=== PATIENT | male | born 1970 | race Caucasian/White ===

== ENCOUNTER 2016-09-23 19:52 | Emergency (ER) | payer BC ==
--- NOTE | 2016-09-23 20:18 | EDPHY ---
H & P Time Seen by Provider: 09/23/16 19:59 HPI/ROS: HPI Left thumb laceration. 46-year-old male by private vehicle. He is right-hand dominant. He was doing wood work with a sharp chisel. He accidentally cut himself with the chisel left radial aspect distal thumb. No other complaint or injury. Cannot remember when his last tetanus shot was. ROS: Constitutional: No fever, no chills. No weakness. Skin: No rashes. As above Neurological: No focal weakness or altered sensation. Past medical history: No pertinent past medical history. Social history: Here by himself. Nonsmoker. Physical Exam: General Appearance: Alert, no distress. This patient is responding to questions appropriately and in full sentences. This patient appears well- hydrated and well-nourished. Eyes: Pupils equal and round no pallor or injection. No lid edema, erythema or injection. Left thumb exam: Significant for a linear, non gaping laceration with fairly brisk bleeding, 2.5 cm in length, distal radial aspect of the thumb just adjacent to the paronychial fold. The left thumb is neurovascularly intact. Flexor and extensor function is intact. No articular involvement. I do not suspect tendon involvement. The left thumb is neurovascularly intact. Neurological: Motor sensory function is grossly intact. Cranial nerves are normal. Gait is normal. Skin: Warm and dry, no rashes. Extremities are symmetrical. All joints range without pain or impingement. Psychiatric: No agitation. No depression. Database: EKG: Imaging: Procedures: Procedure: Laceration repair. Verbal consent was obtained from the patient. The 2.5 laceration on the left distal thumb was anesthetized with digital block, bupivacaine 0.5% without epinephrine. The wound was irrigated, draped and explored to its base with a gloved finger. There were no deep structures involved. No tendon injury was identified. No foreign body identified. The wound was repaired with 6, 5.0 Prolene sutures placed in interrupted fashion. The wound repair was tolerated well and there were no complications. The procedure was performed by myself. Emergency department course: Patient received Tdap vaccination. After suture repair, wound care was discussed with the patient. Appropriate dressing was applied to the wound area. Suture removal was reviewed. Infection precautions discussed. Return to emergency department follow-up reviewed. All of his questions were answered. He was discharged in good condition. Differential Diagnosis: The differential diagnosis on this patient includes but is not limited to left thumb laceration. Tendon laceration, retained foreign body, articular involvement, significant neurovascular injury unlikely. This represents a partial list of diagnoses considered. These considerations are based on history , physical exam, past history, reassessment and diagnostic testing. Smoking Status: Never smoked Constitutional: Initial Vital Signs Temperature (C) 36.8 C 09/23/16 20:04 Heart Rate 62 09/23/16 20:04 Respiratory Rate 18 09/23/16 20:04 Blood Pressure 126/86 H 09/23/16 20:04 O2 Sat (%) 94 09/23/16 20:04 O2 Delivery Mode Room Air Allergies/Adverse Reactions: No Known Allergies Allergy (Unverified 09/05/13 22:45) Home Medications: Medication Instructions Recorded Aspirin [Aspirin 81mg (*)] 09/05/13 Lexapro 09/23/16 Medical Decision Making - Data Points Medications Given: Discontinued Medications Diphtheria/Tetanus/Acell Pertussis (Boostrix) 0.5 ml IM .ONCE ONE Stop: 09/23/16 20:25 Last Admin: 09/23/16 20:31 Dose: 0.5 ml Tetanus Immune Globulin (Hypertet S-D) 250 unit IM .ONCE ONE Stop: 09/23/16 20:22 Last Admin: 09/23/16 20:25 Dose: Not Given Departure - Departure Disposition: Home, Routine, Self-Care Clinical Impression: Laceration of left thumb Condition: Good Instructions: Finger Laceration (ED) Additional Instructions: Read and follow provided instructions. Follow-up with your primary care physician in 1-2 days for re-evaluation as needed. Sutures are to be removed in 8-10 days. Ibuprofen dosin mg every 6 hours with meals for the next 3 days only. Take only as needed for pain. Return to the emergency department for bleeding, swelling, discoloration, signs of infection as noted in discharge instructions or other serious concerns. Referrals: Narinder Choi MD [Primary Care Provider] - As per Instructions
[2016-09-23] MEDS ORDERED: TETANUS IMMUNE GLOBULIN/PF 250 UNIT SYR IM ONE (20:21)
[2016-09-23] MEDS ORDERED: TDAP ADULT 0.5 ML INJ (BOOSTRIX) IM ONE (20:24)
[2016-09-23 20:48] VITALS: BP 126/63; PULSE 65; RESP 20; TEMP 98.1; O2SAT 95
== END 2016-09-23 20:58 | disposition home or self-care (01) ==
LOC: CED 19:52
PROC: 0HQGXZZ Repair Left Hand Skin, External Approach (ICD-10-PCS; principal; 2016-09-23)
DX: S61.012A Laceration without foreign body of left thumb without damage to nail, initial encounter (principal); Z23 Encounter for immunization; W27.0XXA Contact with workbench tool, initial encounter
CPT/HCPCS: J1670

== ENCOUNTER → 2017-02-07 | Day surgery (SDC) | payer BC ==
[~2017-02-07] MED LIST: ACETAMINOPHEN 500 MG TAB PO PRN; BUPIVACAINE 0.5% 30 ML SDV ONE; DEXAMETHASONE 4 MG/ML VIAL ONE; GLYCOPYRROLATE 0.2 MG/1 ML VIAL ONE; HYDROCODONE/APAP 5/325 TAB PO PRN; KETOROLAC 30 MG/1 ML SDV ONE; LIDOCAINE 1% 2 ML INJ ID PRN; LIDOCAINE 1% 2 ML INJ ONE; LIDOCAINE 2% 5 ML SDV ONE; LR 1,000 ML IV ONE; LR 500 ML IV PRN; MIDAZOLAM 2 MG/2 ML VIAL IVP ONE; NALOXONE HCL 0.4 MG/ML INJ IVP PRN; NEOSTIGMINE METHYLSULFATE 3 MG/3 ML SYR ONE; ONDANSETRON 4 MG/2 ML VIAL IVP PRN; ONDANSETRON 4 MG/2 ML VIAL ONE; OXYCODONE/APAP 5/325 TAB ONE; OXYCODONE/APAP 5/325 TAB PO PRN; PROMETHAZINE HCL 25 MG/ML INJ IVP PRN; PROPOFOL 200 MG/20 ML VIAL ONE; PROPOFOL/EMULSION 500 MG/50 ML BOTTLE IV ONE; REMIFENTANIL HCL 1 MG VIAL ONE; ROCURONIUM 50 MG/5 ML VIAL ONE; ceFAZolin 2 GM/SWFI 2 GM/20 ML SYR IVP ONE; fentaNYL 100 MCG/2 ML INJ ONE
--- NOTE | 2017-02-07 06:27 | PDHPUP ---
History & Physical Update H&P update statement: This history and physical update is based on an assessment of the patient which was completed after admission or registration (within 24 hours), but prior to the surgery/procedure. H&P update: H&P reviewed & patient examined, no change in patient's condition since H&P completed
--- NOTE | 2017-02-07 06:55 | PDANEPAE ---
ANE Past Medical History - Cardiovascular History Hx Hypertension: No Hx Arrhythmias: No Hx Chest Pain: No Hx Coronary Artery / Peripheral Vascular Disease: No Hx CHF / Valvular Disease: No Hx Palpitations: No - Pulmonary History Hx COPD: No Hx Asthma/Reactive Airway Disease: No Hx Recent Upper Respiratory Infection: No Hx Oxygen in Use at Home: No Hx Sleep Apnea: No Sleep Apnea Screening Result - Last Documented: Negative - Neurologic History Hx Cerebrovascular Accident: No Hx Seizures: No Hx Dementia: No Neurologic History Comment: MIGRAINES OCCAS - Endocrine History Hx Diabetes: No Hypothyroid: No Hyperthyroid: No Obesity: no - Renal History Hx Renal Disorders: No - Liver History Hx Hepatic Disorders: No - Neurological & Psychiatric Hx Hx Neurological and Psychiatric Disorders: No Neurological / Psychiatric History Comment: LEXAPRO - Cancer History Hx Cancer: No Cancer History Comment: PRECANCEROUS NASAL LESION - Congenital Disorder History Hx Congenital Disorders: Yes Congenital History Comment: MTHFR DISORDER. MOTHER HAS SEVERAL BLOOD DISORDERS - GI History GERD: no Hx Gastrointestinal Disorders: No - Other Health History Other Health History: RASH RECURRENT - Chronic Pain History Chronic Pain: Yes (BACK, KNEES & SHOULDER) - Surgical History Prior Surgeries: EYE SURG X2. SINUS SURG. R KNEE ACL. WISDOM TEETH ANE Review of Systems Review of Systems: - Exercise capacity METS (RN): 5 METS ANE Patient History - Allergies Allergies/Adverse Reactions: No Known Allergies Allergy (Verified 09/23/16 20:57) - Home Medications Home Medications: Aspirin [Aspirin 81mg (*)] 09/05/13 [Last Taken 02/02/17] Lexapro 09/23/16 [Last Taken 02/07/17] Silodosin 02/03/17 [Last Taken 02/07/17] - NPO status NPO Since - Liquids (Date): 02/06/17 NPO Since - Liquids (Time): 22:00 NPO Since - Solids (Date): 02/06/17 NPO Since - Solids (Time): 20:00 - Anes Hx Anes Hx: post operative nausea (Only nausea after ocular surgeries) - Smoking Hx Smoking Status: Never smoked - Family Anes Hx Family Anes Hx: neg - N/A Family Hx Anesthesia Complications: NEG ANE Labs/Vital Signs - Vital Signs Blood Pressure: 117/89 Heart Rate: 96 Respiratory Rate: 16 O2 Sat (%): 96 Height: 182.88 cm Weight: 74.843 kg ANE Physical Exam - Airway Neck exam: FROM Mallampati Score: Class 1 Mouth exam: normal dental/mouth exam - Pulmonary Pulmonary: no respiratory distress, no rales or rhonchi, clear to auscultation - Cardiovascular Cardiovascular: regular rate and rhythym, no murmur, rub, or gallop - ASA Status ASA Status: I ANE Anesthesia Plan Anesthesia Plan: general endotracheal anesthesia
[2017-02-07] MEDS: fentaNYL 100 MCG/2 ML INJ IVP PRN ×2 (09:48→10:04)
[2017-02-07 09:54] VITALS: PULSE 59
--- NOTE | 2017-02-07 10:06 | POSTANESTH ---
Post Anesthetic Evaluation Cardiovascular Status: Normal, Stable Respiratory Status: Normal, Stable Level of Consciousness/Mental Status: Can Participate in Eval Pain Control: Adequate, Prn Tx Ordered Nausea/Vomiting Control: Adequate, Prn Tx Ordered Complications Possibly Related to Anesthesia: None Noted
[2017-02-07 10:16] VITALS: RESP 14
--- NOTE | 2017-02-07 10:40 | POSTOPPROG ---
Post Op Note Date of Operation: 02/07/17 Surgeon: Thomas Bennett Mechanism Assembler: BRENNEN Araujo Anesthesiologist: Werner Anesthesia: GET(General Endotracheal) Pre-op Diagnosis: LIH Post-op Diagnosis: bilateral inguinal hernias Procedure: Robotic assisted pippa inguinal hernia repair with mesh Findings: smal indirect sacs bilaterally Inf/Abcess present in the surg proc area at time of surgery?: No EBL: Minimal
[2017-02-07 10:46] VITALS: TEMP 97.7
[2017-02-07 11:22] VITALS: BP 111/71; O2SAT 96
--- NOTE | 2017-02-07 13:36 | GOP ---
[f rep st] OPERATIVE REPORT DATE OF OPERATION: 02/07/2017 SURGEON: Thomas Bennett MD RESEARCH TEST ENGINE OPERATOR: Merna Araujo PA-C. PREOPERATIVE DIAGNOSIS: Left inguinal hernia. POSTOPERATIVE DIAGNOSIS: Bilateral inguinal hernias. PROCEDURE PERFORMED: Robotic-assisted laparoscopic bilateral inguinal herniorrhaphies with mesh. FINDINGS: Bilateral indirect defects successfully repaired with Bard 3D light mesh. SPECIMENS: None. ESTIMATED BLOOD LOSS: 5 cc. DESCRIPTION OF PROCEDURE: The patient was greeted in the preoperative suite. Once again, risks, benefits, and alternatives were discussed. The consent was signed. Patient was then brought back to the operative suite, placed on the OR table in supine position. After all anesthesia machines, including SCDs, were on and functioning, a [employer] time-out was performed ending with all in agreement. After successful induction of general anesthesia, the patient's abdomen was prepped and draped in typical sterile fashion. I entered the abdomen via a supraumbilical cutdown through which the Veress needle was passed. I successfully achieved pneumoperitoneum to 15 mmHg CO2, which was well tolerated by the patient. Through this site, I inserted a 5 mm Visiport. Once successfully in the abdomen, I placed 2 additional 8 mm trocars, 1 in the left upper and 1 in the right upper quadrant, both under direct visualization, and upsized my umbilical port to the same size. The robot was then successfully docked. I began by inspecting the patient's abdomen and noted that he had bilateral defects. I turned my attention first toward the left where I created a preperitoneal pocket by taking down the peritoneal lining. Once successfully into the pocket, I dissected the indirect sac off the cord structures creating a large enough pocket for the mesh. The mesh was then successfully brought in and sutured to Bowen ligament medially as well as single interrupted 3-0 Vicryl sutures on either side of the inferior epigastric vessels. The mesh laid flat without any kinks, and the peritoneal was then closed with a running 2-0 V-Loc suture. On the right side, the exact same procedure was performed. Again, the sac was somewhat larger on this side. I completely dissected it off the cord structures. Once hemostasis had been adequately achieved, I attached it to Bowen ligament using an interrupted 3-0 Vicryl suture and to either side of the inferior epigastric vessels. In the same fashion, the peritoneal was closed with a running 2-0 V-Loc suture. Once successfully done, I evacuated my pneumoperitoneum, and I closed my port sites with running 4-0 Monocryl over which Dermabond was placed. Patient was then extubated in the operative suite and taken to the PACU in satisfactory condition. DRAINS: None. COUNTS: All counts were reported as correct x2. /[id number]/MODL MTDD
== END | disposition home or self-care (01) ==
LOC: FSGY 05:32
PROVIDERS: ATTEND Surgery
PROC: 0YU64JZ Supplement Left Inguinal Region with Synthetic Substitute, Percutaneous Endoscopic Approach (ICD-10-PCS; principal; 2017-02-07 07:15)
PROC: 8E0W4CZ Robotic Assisted Procedure of Trunk Region, Percutaneous Endoscopic Approach (ICD-10-PCS; principal; 2017-02-07 07:15)
DX: K40.20 Bilateral inguinal hernia, without obstruction or gangrene, not specified as recurrent (principal)
CPT/HCPCS: 49650; S2900; C1781; J0690; J1100; J1885; J2250; J2405; J2704; J2710; J3010